=== PATIENT | male | born 1930 | race Caucasian/White ===

== ENCOUNTER → 2018-06-09 | Outpatient (CLI) | payer MEDICARE, OTHER ==
[~2018-06-09] MED LIST: ASPIR 8181 M1; ASPIR 8181 MG; AUGMENTIN 875875 MG PO; B12INJ IM; CLARITIN10 M3 PO; CLARITIN10 MG; D3 + K2 DOTS 11 EACH PO; FINASTERIDE5 MG PO; FISH OIL 1,001000 M2 PO; FLOMAX0.4 MG PO; GLUCOSAMINE HC500 MG PO; IRON325 PO; JALYN 0.5-0.41 EACH PO; LEVOTHYROXIN0.175 MG PO; NIACIN500 MG PO; PLAVIX 75 MG TA75 M1; PLAVIX 75 MG TA75 M1 PO; TIMOLOL MA0.5 %/5 M2 OPHTHALMIC
== END ==
LOC: M.ULTRA 08:46
DX: I65.23 Occlusion and stenosis of bilateral carotid arteries (principal); I70.8 Atherosclerosis of other arteries

== ENCOUNTER 2018-10-12 08:40 | Inpatient (IN) | payer MEDICARE, OTHER ==
[~2018-10-12] VITALS: Ht 180.3 cm; Wt 81.2 kg
[2018-10-12 08:48] VITALS: BP 126/72
[2018-10-12] MEDS ORDERED: OMEPRAZOLE20 M1 PO (08:52)
[2018-10-12] MEDS ORDERED: ASPIR 8181 MG PO (08:52)
[2018-10-12] MEDS ORDERED: SINGULAIR 10 MG10 M1 PO (08:52)
[2018-10-12] MEDS ORDERED: MUPIROCIN1 GM NASAL (08:53)
[2018-10-12] MEDS ORDERED: B COMPLEX1 EACH PO (08:53)
[2018-10-12 09:34] LABS: HEMATOCRIT 26.2 % (42.0-52.0); HEMOGLOBIN 8.4 gm/dL (14.0-18.0); MCH 26.3 pg (26.0-34.0); MCHC 32.2 g/dL (28.0-37.0); MCV 81.9 fL (80.0-100.0); NUCLEATED RBCS 0 /100WBC; PLATELET COUNT* 339 thou/uL (150-400); RDW-CV 17.2 % (10.5-14.5); WBC 24.5 thou/uL (4.0-11.0)
[2018-10-12 09:45] LABS: ANION GAP 11 mmol/L (7-16); BUN 18 mg/dL (7-18); CALCIUM 9.1 mg/dL (8.5-10.1); CHLORIDE 90 mmol/L (98-107); CO2 23 mmol/L (21-32); GLUCOSE 205 mg/dL (70-99); POTASSIUM 3.2 mmol/L (3.5-5.1); SODIUM 124 mmol/L (136-145)
[2018-10-12 09:57] LABS: ALBUMIN 2.1 g/dL (3.4-5.0); ALKALINE PHOSPHATASE 128 U/L (46-116); NT-PRO BRAIN NAT PEPTIDE 2106 pg/mL (<300); SGOT 17 U/L (15-37); SGPT 15 U/L (30-65); TOTAL BILIRUBIN 0.4 mg/dL (<0.1-1.0); TOTAL PROTEIN 6.9 g/dL (6.4-8.2); TROPONIN-I LEVEL <0.06 ng/mL (<0.06)
[2018-10-12 10:12] LABS: ABSOLUTE LYMPHOCYTES 1.2 thou/uL (0.8-5.3); ABSOLUTE NEUTROPHILS 23.3 thou/uL (1.6-8.1); ANISOCYTOSIS 1+; PLATELET ESTIMATE ADEQUATE
--- NOTE | 2018-10-12 14:31 | EKG ---
[place] [address] ELECTROCARDIOGRAM REPORT Name: CLIVE SAM JR Room: [place] [address] ADM IN ..#: [id number] Admission: 10/12/18 Attend Phys: Colin Quezada MD Discharge: Date of : [birth year]/10/[birth year] Report #: [id number] THIS REPORT FOR: //name// [facility] ED Test Date: 2018-10-12 Test Time: 09:37:26 Pat Name: CLIVE SAM Department: Room: [facility] Gender: M Skein Yarn Drier: DORA : 1930 Requested By: Parish Perry Order Number: [id number] MD: João Snyder Measurements Intervals [place] Rate: 92 P: 9 ME: 191 QRS: 28 QRSD: 146 T: -16 QT: 410 QTc: 508 Interpretive Statements Sinus rhythm Right bundle branch block Baseline wander in lead(s) V1 No previous ECG available for comparison Electronically Signed On 10-12-2018 14:31:37 PAYLOADER OPERATOR by João Snyder [email or web address] <ELECTRONICALLY SIGNED> By: João Snyder MD, [facility] 10/12/18 1431 0937 6 João Snyder MD, [facility] /EPI
[2018-10-12 16:50] VITALS: BP 134/63
[2018-10-12 17:12] VITALS: BP 127/57
[2018-10-12 19:10] LABS: CALCIUM 8.5 mg/dL (8.5-10.1); CREATININE 0.7 mg/dL (0.6-1.3); POTASSIUM 3.2 mmol/L (3.5-5.1)
[2018-10-12 19:45] VITALS: BP 136/94
[2018-10-12 20:36] LABS: URINE BILIRUBIN NEGATIVE (Negative); URINE BLOOD NEGATIVE (Negative); URINE CLARITY CLEAR; URINE COLOR YELLOW; URINE GLUCOSE-RANDOM NEGATIVE (Negative); URINE KETONES TRACE (Negative); URINE LEUKOCYTES NEGATIVE (Negative); URINE NITRITE NEGATIVE (Negative); URINE PROTEIN TRACE (Negative); URINE UROBILINOGEN 0.2 E.U./dl (0.2-1.0)
[2018-10-13] VITALS: BP 98/45
[2018-10-13 04:00] VITALS: BP 147/75
[2018-10-13 04:54] LABS: HEMATOCRIT 25.2 % (42.0-52.0); HEMOGLOBIN 8.1 gm/dL (14.0-18.0); MCH 26.3 pg (26.0-34.0); MCHC 32.1 g/dL (28.0-37.0); MCV 81.9 fL (80.0-100.0); MPV 7.4 fl. (7.2-11.1); RBC 3.08 mil/uL (4.50-6.00); RDW-CV 17.5 % (10.5-14.5); WBC 14.6 thou/uL (4.0-11.0)
[2018-10-13 05:02] LABS: CALCIUM 8.4 mg/dL (8.5-10.1); CREATININE 0.8 mg/dL (0.6-1.3); MAGNESIUM 1.6 mg/dL (1.8-2.4)
[2018-10-13 05:03] LABS: POTASSIUM 4.2 mmol/L (3.5-5.1)
[2018-10-13 08:00] VITALS: BP 119/47
[2018-10-13 11:54] VITALS: BP 115/49
[2018-10-13 16:00] VITALS: BP 120/51
[2018-10-13 20:10] VITALS: BP 132/77
[2018-10-14] VITALS: BP 110/59
[2018-10-14 04:00] VITALS: BP 114/62
[2018-10-14 06:23] LABS: ABSOLUTE LYMPHOCYTES 0.3 thou/uL (0.8-5.3); ABSOLUTE NEUTROPHILS 5.3 thou/uL (1.6-8.1); BASOPHILS 0.3 %; HEMATOCRIT 22.3 % (42.0-52.0); HEMOGLOBIN 7.3 gm/dL (14.0-18.0); LYMPHOCYTES 6.2 %; MCHC 32.9 g/dL (28.0-37.0); MONOCYTES 0.4 %; MPV 7.5 fl. (7.2-11.1); NUCLEATED RBCS 0 /100WBC; PLATELET COUNT* 266 thou/uL (150-400); POLYS 93.1 %; RBC 2.72 mil/uL (4.50-6.00); RDW-CV 17.9 % (10.5-14.5); WBC 5.7 thou/uL (4.0-11.0)
[2018-10-14 06:44] LABS: CALCIUM 8.3 mg/dL (8.5-10.1); CREATININE 0.7 mg/dL (0.6-1.3); MAGNESIUM 1.8 mg/dL (1.8-2.4); POTASSIUM 3.6 mmol/L (3.5-5.1)
[2018-10-14 08:45] VITALS: BP 133/69
[2018-10-14 12:00] VITALS: BP 108/51
[2018-10-14 16:00] VITALS: BP 132/68
[2018-10-14 20:00] VITALS: BP 127/66
[2018-10-15] VITALS: BP 112/57
[2018-10-15 04:00] VITALS: BP 134/62
[2018-10-15 05:09] LABS: CALCIUM 9.3 mg/dL (8.5-10.1); CREATININE 0.9 mg/dL (0.6-1.3); POTASSIUM 4.2 mmol/L (3.5-5.1)
[2018-10-15 08:00] VITALS: BP 112/59
[2018-10-15 12:25] VITALS: BP 122/65
[2018-10-15] MEDS ORDERED: MUCINEX600 MG PO ×2 (14:05→14:16)
[2018-10-15] MEDS ORDERED: CEFDINIR300 MG PO ×2 (14:05→14:16)
[2018-10-15] MEDS ORDERED: PREDNISONE 10 M10 MG PO ×2 (14:05→14:16)
[2018-10-15 14:44] VITALS: BP 122/65
[2018-10-15] MEDS ORDERED: FLOMAX0.4 MG PO (16:33)
== END 2018-10-15 16:33 | disposition home or self-care (01) | DRG 871 ==
LOC: M.ERS 08:40 → M.TBA-ER 11:02 → M.2W 11:02 → M.TBA-ER 11:02 → M.2W 17:12
PROVIDERS: Emergency Medicine Emergency Medical Services; Internal Medicine; ADMIT Internal Medicine
DX: A41.9 Sepsis, unspecified organism (principal); J96.01 Acute respiratory failure with hypoxia; J15.9 Unspecified bacterial pneumonia; E22.2 Syndrome of inappropriate secretion of antidiuretic hormone; J44.0 Chronic obstructive pulmonary disease with (acute) lower respiratory infection; H40.9 Unspecified glaucoma; M19.90 Unspecified osteoarthritis, unspecified site; K21.9 Gastro-esophageal reflux disease without esophagitis; N40.0 Benign prostatic hyperplasia without lower urinary tract symptoms; E03.9 Hypothyroidism, unspecified; Z90.49 Acquired absence of other specified parts of digestive tract; Z88.8 Allergy status to other drugs, medicaments and biological substances; Z87.891 Personal history of nicotine dependence; Z79.82 Long term (current) use of aspirin; Z79.899 Other long term (current) drug therapy

== ENCOUNTER → 2018-11-03 | Outpatient (CLI) | payer MEDICARE, OTHER ==
[~2018-11-03] MED LIST changes: +ASPIR 8181 MG PO; +B COMPLEX1 EACH PO; +CEFDINIR300 MG PO; +MUCINEX600 MG PO; +MUPIROCIN1 GM NASAL; +OMEPRAZOLE20 M1 PO; +PREDNISONE 10 M10 MG PO; +SINGULAIR 10 MG10 M1 PO
== END ==
LOC: M.RAD 09:29
DX: I51.7 Cardiomegaly (principal); J44.9 Chronic obstructive pulmonary disease, unspecified; J18.9 Pneumonia, unspecified organism; K44.9 Diaphragmatic hernia without obstruction or gangrene

== ENCOUNTER 2018-12-15 23:35 | Emergency (ER) | payer MEDICARE, OTHER ==
[~2018-12-15] VITALS: Ht 182.9 cm; Wt 77.1 kg
[2018-12-16 00:32] VITALS: BP 100/62
== END 2018-12-16 00:33 | disposition home or self-care (01) ==
LOC: M.ERS 23:35
DX: R04.0 Epistaxis (principal); E03.9 Hypothyroidism, unspecified; M19.90 Unspecified osteoarthritis, unspecified site; K21.9 Gastro-esophageal reflux disease without esophagitis; Z90.49 Acquired absence of other specified parts of digestive tract; Z88.4 Allergy status to anesthetic agent

== ENCOUNTER 2018-12-18 16:30 | Emergency (ER) | payer MEDICARE, OTHER ==
[~2018-12-18] VITALS: Ht 180.3 cm; Wt 77.1 kg
[2018-12-18] MEDS ORDERED: KEFLEX500 M1 PO (16:58)
[2018-12-18 17:11] VITALS: BP 126/76
== END 2018-12-18 17:11 | disposition home or self-care (01) ==
LOC: M.ERS 16:30
DX: S01.01XA Laceration without foreign body of scalp, initial encounter (principal); E03.9 Hypothyroidism, unspecified; Z90.49 Acquired absence of other specified parts of digestive tract; M19.90 Unspecified osteoarthritis, unspecified site; K21.9 Gastro-esophageal reflux disease without esophagitis; Z88.4 Allergy status to anesthetic agent; W01.190A Fall on same level from slipping, tripping and stumbling with subsequent striking against furniture, initial encounter; Y93.89 Activity, other specified; Y92.89 Other specified places as the place of occurrence of the external cause; Y99.8 Other external cause status

== ENCOUNTER 2019-03-14 15:45 | Emergency (ER) | payer MEDICARE, OTHER ==
[~2019-03-14] VITALS: Ht 180.3 cm; Wt 72.6 kg
[~2019-03-14 15:45] MED LIST changes: +KEFLEX500 M1 PO
[2019-03-14] MEDS ORDERED: CLARITIN10 MG PO (15:56)
[2019-03-14 18:35] VITALS: BP 125/72
== END 2019-03-14 18:38 | disposition home or self-care (01) ==
LOC: M.ERS 15:45
DX: R04.0 Epistaxis (principal); K21.9 Gastro-esophageal reflux disease without esophagitis; M19.90 Unspecified osteoarthritis, unspecified site; E03.9 Hypothyroidism, unspecified; Z86.2 Personal history of diseases of the blood and blood-forming organs and certain disorders involving the immune mechanism; Z90.49 Acquired absence of other specified parts of digestive tract; Z88.8 Allergy status to other drugs, medicaments and biological substances

== ENCOUNTER 2019-11-02 17:56 | Emergency (ER) | payer MEDICARE, OTHER ==
[~2019-11-02] VITALS: Ht 180.3 cm; Wt 72.6 kg
[~2019-11-02 17:56] MED LIST changes: +CLARITIN10 MG PO
[2019-11-02 20:46] VITALS: BP 138/72
== END 2019-11-02 20:46 | disposition home or self-care (01) ==
LOC: M.ERS 17:56
DX: R04.0 Epistaxis (principal); K21.9 Gastro-esophageal reflux disease without esophagitis; M19.90 Unspecified osteoarthritis, unspecified site; E03.9 Hypothyroidism, unspecified; Z90.49 Acquired absence of other specified parts of digestive tract; Z88.8 Allergy status to other drugs, medicaments and biological substances

== ENCOUNTER 2019-12-08 02:35 | Emergency (ER) | payer MEDICARE, OTHER ==
[~2019-12-08] VITALS: Ht 180.3 cm; Wt 74.8 kg
[2019-12-08 02:44] VITALS: BP 117/53
== END 2019-12-08 03:31 | disposition home or self-care (01) ==
LOC: M.ERS 02:35
DX: R04.0 Epistaxis (principal); E03.9 Hypothyroidism, unspecified; M19.90 Unspecified osteoarthritis, unspecified site; K21.9 Gastro-esophageal reflux disease without esophagitis; Z88.8 Allergy status to other drugs, medicaments and biological substances; Z90.49 Acquired absence of other specified parts of digestive tract

== ENCOUNTER 2019-12-13 20:00 | Inpatient (IN) | payer MEDICARE, OTHER ==
[~2019-12-13] VITALS: Ht 180.3 cm; Wt 76.7 kg
[~2019-12-13 20:00] MED LIST changes: -LEVOTHYROXIN0.175 MG PO; +SYNTHROID175 MCG PO
[2019-12-13 20:03] VITALS: BP 109/32
[2019-12-13 21:14] LABS: HEMATOCRIT 31.5 % (42.0-52.0); HEMOGLOBIN 10.3 gm/dL (14.0-18.0); MCHC 32.7 g/dL (28.0-37.0); MCV 88.8 fL (80.0-100.0); MPV 7.7 fl. (7.2-11.1); NUCLEATED RBCS 0 /100WBC; PLATELET COUNT* 435 thou/uL (150-400); RBC 3.55 mil/uL (4.50-6.00); RDW-CV 15.5 % (10.5-14.5); WBC 17.2 thou/uL (4.0-11.0)
[2019-12-13 21:21] LABS: CALCIUM 9.4 mg/dL (8.5-10.1); CREATININE 1.2 mg/dL (0.6-1.3); POTASSIUM 4.1 mmol/L (3.5-5.1)
[2019-12-13 21:33] LABS: ALBUMIN 3.1 g/dL (3.4-5.0); TOTAL BILIRUBIN 0.4 mg/dL (<0.1-1.0); TOTAL PROTEIN 8.3 g/dL (6.4-8.2)
[2019-12-13 22:51] LABS: URINE BILIRUBIN NEGATIVE (Negative); URINE BLOOD NEGATIVE (Negative); URINE CLARITY CLEAR; URINE COLOR YELLOW; URINE GLUCOSE-RANDOM NEGATIVE (Negative); URINE KETONES NEGATIVE (Negative); URINE LEUKOCYTES-REFLEX NEGATIVE (Negative); URINE NITRITE-REFLEX NEGATIVE (Negative); URINE PROTEIN 2+ (Negative); URINE UROBILINOGEN 0.2 E.U./dl (0.2-1.0)
[2019-12-13 23:09] LABS: SQUAMOUS 0-3 Few /LPF (0-3); URINE RBC 3-10 Few /HPF (0-2); URINE WBC-REFLEX 6-15 Few /HPF (0-5); WBC CLUMPS Few (None Seen)
[2019-12-13 23:10] LABS: BACTERIA-REFLEX >30 Many /HPF (None Seen); COARSE GRANULAR CASTS 0-3 Few /LPF (None Seen); CRYSTALS None Seen /LPF (None Seen); FINE GRANULAR CASTS 0-3 Few /LPF (None Seen); HYALINE CASTS 0-3 Few /LPF (None Seen); MUCUS 4-6 Moderate strn/LPF (None Seen)
[2019-12-13 23:34] LABS: ABSOLUTE LYMPHOCYTES 0.7 thou/uL (0.8-5.3); ABSOLUTE NEUTROPHILS 16.5 thou/uL (1.6-8.1); PLATELET ESTIMATE ADEQUATE; TOXIC GRANULATION 1+
[2019-12-14] VITALS (15 sets, daily range): BP systolic 72–102; BP diastolic 38–59
[2019-12-14 01:58] LABS: INFLUENZA A ANTIGEN Negative (Negative); INFLUENZA B ANTIGEN Negative (Negative)
[2019-12-14] MEDS ORDERED: ACETAMINOPHEN500 M1 PO (03:39)
[2019-12-14] MEDS ORDERED: NIACIN 500 MG500 M1 PO (03:41)
[2019-12-14 09:54] LABS: CHOLESTEROL 107 mg/dL (<200); HDL CHOLESTEROL 41 mg/dL (>40); LDL CHOLESTEROL 48 mg/dL (<100); NT-PRO BRAIN NAT PEPTIDE 4427 pg/mL (<300); TC:HDL 2.6 Ratio (Not establshd); TRIGLYCERIDE 93 mg/dL (<150); VLDL 19 mg/dL (<40)
--- NOTE | 2019-12-14 09:54 | EKG ---
[place] [address] ELECTROCARDIOGRAM REPORT Name: CLIVE SAM JR Room: [address] ADM IN M.R.#: [id number] Admission: 12/13/19 Attend Phys: Mason li Sa Discharge: Date of : [birth year]/10/[birth year] Date of Service: 12/13/192009 Report #: [id number] THIS REPORT FOR: //name// [facility] ED Test Date: 2019-12-13 Test Time: 20:10:38 Pat Name: CLIVE SAM Department: Room: [facility] Gender: M [place] Operator: KIKI : 1930 Requested By: Jadyn Rojo Order Number: [id number] MD: João Snyder Measurements Intervals [place] Rate: 116 P: 22 WI: 159 QRS: 125 QRSD: 147 T: 8 QT: 332 QTc: 462 Interpretive Statements Sinus tachycardia RBBB Compared to ECG 10/12/2018 09:37:26 Sinus rhythm no longer present Electronically Signed On 12-14-2019 9:53:31 DIRECTOR COST by João Snyder [email or web address] <ELECTRONICALLY SIGNED> By: João Snyder MD, [facility] 12/14/19 0953 09 09 João Snyder MD, [facility] /EPI
[2019-12-14 10:02] LABS: SERUM ASSESSMENT Clear
--- NOTE | 2019-12-14 15:47 | 2DMMODE ---
[place] [address] 2 D/M-MODE ECHOCARDIOGRAM Name: CLIVE SAM JR Room: [address] IN .R.#: [id number] Admission: 12/13/19 Attend Phys: Mason li Sa Discharge: Date of : [birth year]/10/[birth year] Date of Service: 12/14/19 1545 Report #: [id number] THIS REPORT FOR: cc: Diana Heart MD, Katrina MD Liston, Michael J. MD [facility] ~ APPROVED REPORT Study performed: 12/14/2019 11:39:06 EXAM: Comprehensive 2D, Doppler, and color-flow Echocardiogram Patient Location: In-Patient Room #: [facility] Status: routine BSA: 1.89 HR: 96 bpm BP: 87/42 mmHg Rhythm: NSR Other Information Study Quality: Good Indications Acute MO 2D Dimensions IVSd: 9.42 (7-11mm) LVOT Diam: 20.54 (18-24mm) LVDd: 42.91 mm PWd: 9.13 (7-11mm) LVDs: 30.17 (25-40mm) Aortic Root: 30.45 mm Volumes Left Atrial Volume (Systole) LA ESV Index: 25.60 mL/m2 Aortic Valve AoV Peak Evelio.: 2.30 m/s AO Peak Gr.: 21.18 mmHg LVOT Max P.34 mmHg AO Mean Gr.: 12.82 mmHg LVOT Mean P.86 mmHg LVOT Max V: 0.91 m/s AO V2 VTI: 44.20 cm LVOT Mean V: 0.64 m/s SHASTA (VTI): 1.38 cm2 LVOT V1 VTI: 18.45 [place] [address] 2 D/M-MODE ECHOCARDIOGRAM Name: CLIVE SAM Room: [address] IN M.R.#: [id number] Admission: 12/13/19 Attend Phys: Mason li Sa Discharge: Date of : 12/10/[birth year] Date of Service: 12/14/19 1545 Report #: [id number] Mitral Valve E/A Ratio: 0.78 MV Decel. Time: 113.67 ms MV E Max Evelio.: 0.77 m/s MV PHT: 32.97 ms MVA (PHT): 6.67 cm2 TDI E/Lateral E': 8.56 E/Medial E': 9.63 Medial E' Evelio.: 0.08 m/s Lateral E' Evelio.: 0.09 m/s Pulmonary Valve PV Peak Evelio.: 0.98 m/s PV Peak Gr.: 3.82 mmHg Tricuspid Valve RAP Estimate: 5.00 mmHg TR Peak Gr.: 16.33 mmHg RVSP: 21.00 mmHg PA Pressure: 21.00 mmHg Left Ventricle The left ventricle is normal size. There is slight left ventricular systolic dyssynergy due to underlying bundle branch block. Global LV function is preserved. There is normal left ventricular wall thickness. Left ventricular systolic function is normal. LVEF is 55-60%. Grade I - abnormal relaxation pattern. Right Ventricle Right ventricle is mildly dilated. The right ventricular systolic function is normal. Atria Left atrium is mildly dilated. Right atrium is dilated. Aortic Valve Moderate aortic valve sclerosis. No aortic regurgitation is present. Moderate aortic stenosis. Mitral Valve The mitral valve is normal in structure. There is no mitral valve regurgitation noted. No evidence of mitral valve stenosis. Tricuspid Valve The tricuspid valve is normal in structure. Mild tricuspid regurgitation[place] [address] 2 D/M-MODE ECHOCARDIOGRAM Name: CLIVE SMA JR Room: [address] IN [facility]#: [id number] Admission: 12/13/19 Attend Phys: Mason li Sa Discharge: Date of : 12/10/[birth year] Date of Service: 12/14/19 1545 Report #: [id number] Pulmonic Valve The pulmonary valve is normal in structure. There is no pulmonic valvular regurgitation. Great Vessels The aortic root is normal in size. IVC is normal in size and collapses >50% with inspiration. Pericardium There is no pericardial effusion. <Conclusion> The left ventricle is normal size. There is normal left ventricular wall thickness. Left ventricular systolic function is normal. LVEF is 55-60%. Grade I - abnormal relaxation pattern. There is slight left ventricular systolic dyssynergy due to underlying bundle branch block. Global LV function is preserved. Right atrium is dilated. Right ventricle is mildly dilated. Moderate aortic valve sclerosis. Moderate aortic stenosis. Mild tricuspid regurgitation. No pulmonary hypertension. IVC is normal in size and collapses >50% with inspiration. <ELECTRONICALLY SIGNED> By: Manjeet Hair MD, FACC 12/14/19 1545 1545 1545 Manjeet Hair MD, FACC /INF
[2019-12-15] VITALS (8 sets, daily range): BP systolic 86–130; BP diastolic 47–67
[2019-12-15 04:17] LABS: ABSOLUTE EOSINOPHILS 0.2 thou/uL (0.0-0.7); ABSOLUTE LYMPHOCYTES 0.7 thou/uL (0.8-5.3); ABSOLUTE MONOCYTES 0.1 thou/uL (0.0-1.2); ABSOLUTE NEUTROPHILS 10.8 thou/uL (1.6-8.1); BASOPHILS 0.2 %; HEMATOCRIT 23.8 % (42.0-52.0); LYMPHOCYTES 5.9 %; MCH 29.7 pg (26.0-34.0); MCV 90.1 fL (80.0-100.0); MONOCYTES 0.9 %; MPV 8.2 fl. (7.2-11.1); NUCLEATED RBCS 0 /100WBC; RBC 2.65 mil/uL (4.50-6.00); RDW-CV 15.5 % (10.5-14.5); WBC 11.9 thou/uL (4.0-11.0)
[2019-12-15 04:44] LABS: ALBUMIN 2.1 g/dL (3.4-5.0); CALCIUM 8.3 mg/dL (8.5-10.1); CREATININE 1.4 mg/dL (0.6-1.3); POTASSIUM 3.7 mmol/L (3.5-5.1); TOTAL BILIRUBIN 0.3 mg/dL (<0.1-1.0); TOTAL PROTEIN 6.1 g/dL (6.4-8.2)
[2019-12-15 05:00] LABS: HEMOGLOBIN 7.9 gm/dL (14.0-18.0); PLATELET COUNT* 262 thou/uL (150-400)
[2019-12-15 18:37] LABS: HEMATOCRIT 27.7 % (42.0-52.0); HEMOGLOBIN 9.3 gm/dL (14.0-18.0)
[2019-12-16] VITALS: BP 119/67
[2019-12-16 04:00] VITALS: BP 111/62
[2019-12-16 08:39] VITALS: BP 95/53
[2019-12-16 12:00] VITALS: BP 102/63
[2019-12-16 16:00] VITALS: BP 126/70
[2019-12-16 19:40] VITALS: BP 106/69
[2019-12-17] VITALS: BP 122/68
[2019-12-17 04:00] VITALS: BP 122/65
[2019-12-17 06:08] LABS: HEMATOCRIT 28.8 % (42.0-52.0); HEMOGLOBIN 9.7 gm/dL (14.0-18.0); MCH 29.5 pg (26.0-34.0); MCHC 33.5 g/dL (28.0-37.0); MCV 88.1 fL (80.0-100.0); MPV 7.9 fl. (7.2-11.1); RBC 3.27 mil/uL (4.50-6.00); RDW-CV 15.7 % (10.5-14.5); WBC 12.1 thou/uL (4.0-11.0)
[2019-12-17 06:40] LABS: ALBUMIN 2.4 g/dL (3.4-5.0); CALCIUM 8.9 mg/dL (8.5-10.1); CREATININE 0.9 mg/dL (0.6-1.3); MAGNESIUM 1.6 mg/dL (1.8-2.4); POTASSIUM 3.6 mmol/L (3.5-5.1)
[2019-12-17 08:54] VITALS: BP 108/67
[2019-12-17] MEDS ORDERED: CULTURELLE KID1 EAC1 PO (09:49)
[2019-12-17] MEDS ORDERED: MUCINEX600 MG PO (09:49)
[2019-12-17 10:26] VITALS: BP 129/60
[2019-12-17 12:48] VITALS: BP 129/60
[2019-12-17 13:11] VITALS: BP 129/60
== END 2019-12-17 14:29 | disposition home or self-care (01) | DRG 280 ==
LOC: M.ERS 20:00 → M.2W 22:45 → M.TBA-ER 22:45 → M.2W 12-14 00:20
PROVIDERS: Emergency Medicine; Internal Medicine; Registered Nurse; ADMIT Family Medicine
PROC: 5A09357 Assistance with Respiratory Ventilation, Less than 24 Consecutive Hours, Continuous Positive Airway Pressure (ICD-10-PCS; principal; 2019-12-14)
PROC: 30233N1 Transfusion of Nonautologous Red Blood Cells into Peripheral Vein, Percutaneous Approach (ICD-10-PCS; 2019-12-15)
DX: I21.4 Non-ST elevation (NSTEMI) myocardial infarction (principal); R65.11 Systemic inflammatory response syndrome (SIRS) of non-infectious origin with acute organ dysfunction; N17.0 Acute kidney failure with tubular necrosis; N17.9 Acute kidney failure, unspecified; E44.1 Mild protein-calorie malnutrition; N39.0 Urinary tract infection, site not specified; C81.90 Hodgkin lymphoma, unspecified, unspecified site; I95.9 Hypotension, unspecified; K44.9 Diaphragmatic hernia without obstruction or gangrene; R04.0 Epistaxis; E03.9 Hypothyroidism, unspecified; I51.7 Cardiomegaly; E78.5 Hyperlipidemia, unspecified; M19.012 Primary osteoarthritis, left shoulder; R01.1 Cardiac murmur, unspecified; J32.9 Chronic sinusitis, unspecified; D50.0 Iron deficiency anemia secondary to blood loss (chronic); I35.0 Nonrheumatic aortic (valve) stenosis; K21.9 Gastro-esophageal reflux disease without esophagitis; Z68.23 Body mass index [BMI] 23.0-23.9, adult; Z90.49 Acquired absence of other specified parts of digestive tract; Z88.8 Allergy status to other drugs, medicaments and biological substances; Z79.82 Long term (current) use of aspirin; Z79.899 Other long term (current) drug therapy; Z87.891 Personal history of nicotine dependence; Z80.9 Family history of malignant neoplasm, unspecified

== ENCOUNTER → 2020-03-19 | Outpatient (CLI) | payer MEDICARE, OTHER ==
[~2020-03-19] MED LIST changes: +ACETAMINOPHEN500 M1 PO; +CULTURELLE KID1 EAC1 PO; +NIACIN 500 MG500 M1 PO
== END ==
LOC: M.ULTRA 12-25 09:00
DX: I65.23 Occlusion and stenosis of bilateral carotid arteries (principal); I70.8 Atherosclerosis of other arteries